=== PATIENT | male | born 1980 | race Caucasian/White ===

== ENCOUNTER 2021-07-24 11:20 | Inpatient (IN) | payer OTHER ==
[2021-07-24 13:27] VITALS: BMI 22.1
[2021-07-24] MEDS ORDERED: ACETAMINOPHEN 325 MG TABLET (FP) PO PRN ×2 (14:07)
[2021-07-24] MEDS ORDERED: IBUPROFEN 400 MG TABLET (FP) PO PRN (14:07)
[2021-07-24] MEDS ORDERED: methaDONE HCL 10 MG TABLET (FOR DETOX USE ONLY) PO ONE (14:07)
[2021-07-24] MEDS ORDERED: BISMUTH SUBSALICYLATE 262 MG/15 ML BTL PO PRN (14:07)
[2021-07-24] MEDS ORDERED: MENTHOL/PHENOL 1 EACH UD MM PRN (14:07)
[2021-07-24] MEDS ORDERED: MAGNESIUM CITRATE 300 ML BOTTLE PO PRN (14:07)
[2021-07-24] MEDS ORDERED: MAGNESIUM HYDROX 2400MG/30ML ORAL SUSPENSION 30 ML CUP PO PRN (14:07)
[2021-07-24] MEDS ORDERED: MAG HYDROX/AL HYDROX/SIMETH 30 ML UNIT-DOSE CUP PO PRN (14:07)
[2021-07-24] MEDS: METHOCARBAMOL 500 MG TABLET PO PRN ×2 (15:20→22:15)
[2021-07-24] MEDS: hydrOXYzine PAMOATE 25 MG CAPSULE (FP) PO SCH ×2 (17:43→22:15)
[2021-07-24] MEDS ORDERED: MELATONIN 5 MG TABLETS PO SCH (22:00)
[2021-07-24] MEDS: THIAMINE HCL 100 MG TABLET (FP) PO SCH (22:15)
[2021-07-25] MEDS: hydrOXYzine PAMOATE 25 MG CAPSULE (FP) PO SCH ×5 (06:32→22:35)
[2021-07-25] MEDS ORDERED: methaDONE HCL 10 MG TABLET (FOR DETOX USE ONLY) ONE (09:31)
[2021-07-25] MEDS: PRENATAL VITAMINS W/ FOLIC ACID TABLET (FP) PO SCH (10:31)
[2021-07-25] MEDS: METHOCARBAMOL 500 MG TABLET PO PRN (10:31)
[2021-07-25] MEDS: SERTRALINE HCL 50 MG TABLET (FP) PO SCH (10:33)
[2021-07-25 14:42] LABS: HEMATOCRIT 39.3 % (35.4-49); HEMOGLOBIN 12.9 GM/dL (11.7-16.9); MCH 29.7 pg (25.7-33.7); MCHC 32.7 g/dl (32.0-35.9); MEAN CELL VOLUME 90.6 fl (80-96); MEAN PLT VOLUME 8.4 fl (7.5-11.1); PLATELET COUNT 345 10^3/uL (134-434); RBC 4.34 M/mm3 (4.00-5.60); RDW 13.4 % (11.9-15.9); WHITE BLOOD COUNT 6.9 K/mm3 (4.0-10.0)
[2021-07-25 14:46] LABS: ALBUMIN 3.6 g/dl (3.4-5.0); BLOOD UREA NITROGEN 10.3 mg/dL (7-18)
[2021-07-25 14:47] LABS: CALCIUM 9.6 mg/dL (8.5-10.1)
[2021-07-25 14:50] LABS: BILIRUBIN,TOTAL 0.8 mg/dL (0.2-1)
[2021-07-25 14:52] LABS: CREATININE 0.9 mg/dL (0.55-1.3)
[2021-07-25 14:53] LABS: TOT PROT 7.2 g/dl (6.4-8.2)
[2021-07-25] MEDS: cloNIDine HCL 0.1 MG TABLET PO PRN ×2 (18:10→22:26)
[2021-07-25] MEDS ORDERED: traZODone HCL 150 MG TABLET PO SCH (22:00)
[2021-07-25] MEDS: THIAMINE HCL 100 MG TABLET (FP) PO SCH (22:25)
[2021-07-25] MEDS: SUVOREXANT 10 MG TABLET PO PRN (22:27)
[2021-07-26] MEDS: hydrOXYzine PAMOATE 25 MG CAPSULE (FP) PO SCH ×6 (06:12→22:41)
[2021-07-26] MEDS: cloNIDine HCL 0.1 MG TABLET PO PRN ×3 (06:24→20:49)
[2021-07-26] MEDS ORDERED: methaDONE HCL 10 MG TABLET (FOR DETOX USE ONLY) PO ONE (10:00)
[2021-07-26] MEDS: PRENATAL VITAMINS W/ FOLIC ACID TABLET (FP) PO SCH (10:19)
[2021-07-26] MEDS: SERTRALINE HCL 50 MG TABLET (FP) PO SCH (10:19)
[2021-07-26] MEDS: METHOCARBAMOL 500 MG TABLET PO PRN (10:21)
[2021-07-26] MEDS: SUVOREXANT 10 MG TABLET PO PRN (22:40)
[2021-07-26] MEDS: THIAMINE HCL 100 MG TABLET (FP) PO SCH (22:41)
[2021-07-27] MEDS: hydrOXYzine PAMOATE 25 MG CAPSULE (FP) PO SCH ×5 (06:47→22:21)
[2021-07-27] MEDS ORDERED: methaDONE HCL 10 MG TABLET (FOR DETOX USE ONLY) ONE (09:40)
[2021-07-27] MEDS: PRENATAL VITAMINS W/ FOLIC ACID TABLET (FP) PO SCH (10:24)
[2021-07-27] MEDS: METHOCARBAMOL 500 MG TABLET PO PRN ×2 (10:24→18:31)
[2021-07-27] MEDS: SERTRALINE HCL 50 MG TABLET (FP) PO SCH (10:24)
[2021-07-27] MEDS: ONDANSETRON *ODT* 4 MG TABLET SL PRN (12:09)
[2021-07-27] MEDS ORDERED: DIPHENOXYLATE 2.5/ATROPINE.025 1 COMBO TABLET PO PRN (12:50)
[2021-07-27] MEDS: cloNIDine HCL 0.1 MG TABLET PO PRN ×2 (14:19→20:36)
[2021-07-27] MEDS: SUVOREXANT 10 MG TABLET PO PRN (22:20)
[2021-07-27] MEDS: THIAMINE HCL 100 MG TABLET (FP) PO SCH (22:21)
[2021-07-28] MEDS: hydrOXYzine PAMOATE 25 MG CAPSULE (FP) PO SCH ×6 (06:54→22:16)
[2021-07-28] MEDS ORDERED: methaDONE HCL 10 MG TABLET (FOR DETOX USE ONLY) PO ONE (10:00)
[2021-07-28] MEDS: SERTRALINE HCL 50 MG TABLET (FP) PO SCH (10:34)
[2021-07-28] MEDS: METHOCARBAMOL 500 MG TABLET PO PRN ×2 (10:34→22:18)
[2021-07-28] MEDS: PRENATAL VITAMINS W/ FOLIC ACID TABLET (FP) PO SCH (10:34)
[2021-07-28] MEDS: ONDANSETRON *ODT* 4 MG TABLET SL PRN (11:21)
[2021-07-28] MEDS: cloNIDine HCL 0.1 MG TABLET PO PRN (11:21)
[2021-07-28] MEDS: THIAMINE HCL 100 MG TABLET (FP) PO SCH (22:17)
[2021-07-29] MEDS: hydrOXYzine PAMOATE 25 MG CAPSULE (FP) PO SCH (05:56)
[2021-07-29 07:43] VITALS: TEMP 98.6
[2021-07-29 09:38] VITALS: BP 128/61; PULSE 74
== END 2021-07-29 09:20 | disposition home or self-care (01) | DRG 897 ==
LOC: YASAS 11:20 → Y6N 14:44
PROVIDERS: ADMIT Allergy & Immunology; ATTEND Allergy & Immunology
PROC: HZ2ZZZZ Detoxification Services for Substance Abuse Treatment (ICD-10-PCS; principal; 2021-07-24)
DX: F11.23 Opioid dependence with withdrawal (principal); F84.5 Asperger's syndrome; F19.282 Other psychoactive substance dependence with psychoactive substance-induced sleep disorder; F12.20 Cannabis dependence, uncomplicated; F17.213 Nicotine dependence, cigarettes, with withdrawal; F34.1 Dysthymic disorder; F41.9 Anxiety disorder, unspecified; F19.24 Other psychoactive substance dependence with psychoactive substance-induced mood disorder; K58.9 Irritable bowel syndrome, unspecified; Z56.0 Unemployment, unspecified
CPT/HCPCS: 36415; 80053; 85027; 86780; C9803; J0735; Q0162; U0003; U0005